=== PATIENT | male | born 1945 | race Caucasian/White ===

== ENCOUNTER → 2021-11-15 13:21 | Outpatient (CLI) | payer MEDICARE, OTHER, SELFPAY ==
--- NOTE | 2021-11-15 13:33 | DI.CT.S_ITS ---
PROCEDURE: CT ABDOMEN W CON INDICATIONS: Family history of ischemic heart disease TECHNIQUE: After the administration of oral and intravenous contrast, 5 mm thick sections acquired from the diaphragms to the iliac crests. 5 mm thick coronal and sagittal reformats were acquired. For radiation dose reduction, the following was used: automated exposure control, adjustment of mA and/or kV according to patient size. COMPARISON: None. FINDINGS: Image quality: Excellent. Lung bases: Lung bases are clear. Heart size is normal. Solid organs: Liver is normal in size and mildly hypoattenuating, most likely secondary to diffuse fatty infiltration.. A circumscribed hypointense lesion in the central left liver is most likely a cyst. Gallbladder is mildly contracted. Biliary system is non dilated. Pancreas enhances normally. Spleen is normal in size and enhancement. No adrenal nodules. Kidneys are normal in size, without hydronephrosis. Peritoneum and bowel: Contrast enhanced bowel loops appear normal in caliber. No free fluid or air. Nodes and vessels: No retroperitoneal or mesenteric adenopathy by size criteria. Mild aortic atherosclerotic calcifications. The infrarenal abdominal aorta measures up to 2.3 x 2.1 cm in diameter. Bones: No suspicious bony lesions. No vertebral body compression fractures. Healed posterior right 12th rib fracture. Mild degenerative changes in the spine. Miscellaneous: No ventral hernias. IMPRESSION: 1. No abdominal aortic aneurysm. No acute abnormality is seen in the upper abdomen. 2. Mild hepatic steatosis. Dictated by: Ryan Xiao M.D. on 11/15/2021 at 15:44 Approved by: Ryan Xiao M.D. on 11/15/2021 at 15:51
== END ==
PROVIDERS: PCP Internal Medicine; Referring Provider Internal Medicine; Visit Provider Internal Medicine
DX: Z82.49 Family history of ischemic heart disease and other diseases of the circulatory system (principal); Z13.6 Encounter for screening for cardiovascular disorders; K76.0 Fatty (change of) liver, not elsewhere classified
CPT/HCPCS: 74160

== ENCOUNTER → 2023-02-15 09:29 | Outpatient (CLI) | payer MEDICARE, OTHER, SELFPAY ==
--- NOTE | 2023-02-15 | DI.US.S_ITS ---
PROCEDURE: US ABDOMEN LIMITED INDICATIONS: FATTY (CHANGE OF) LIVER, NOT ELSEWHERE CLASSIFIED TECHNIQUE: Real-time focused scanning was performed of the abdomen, with image documentation. COMPARISON: [facility], CT, CT ABDOMEN W CON, 11/15/2021, 14:23. FINDINGS: Technically challenging exam due to bowel gas. Left lobe of the liver is not well visualized. Liver length of 14.7 cm. The liver is echogenic. No gallstones, gallbladder wall thickening, or sonographic Shahid sign. No biliary ductal dilation demonstrated, extrahepatic duct measures 2 mm. Pancreas not well visualized due to bowel gas. IMPRESSION: The liver is echogenic, a nonspecific finding commonly seen in the setting of steatosis. Dictated by: Ryan Tran M.D. on 02/15/2023 at 17:03 Approved by: Ryan Tran M.D. on 02/15/2023 at 17:04
== END ==
PROVIDERS: Referring Provider Internal Medicine; Visit Provider Internal Medicine
DX: K76.0 Fatty (change of) liver, not elsewhere classified (principal)
CPT/HCPCS: 76705